=== PATIENT | female | born 1970 | race Two or more races ===

== ENCOUNTER → 2025-06-18 | Outpatient (CLI) | payer BC, SELFPAY ==
--- NOTE | 2025-06-18 14:30 | XR_ITS ---
Examination: Thyroid sonography complete TECHNIQUE: Grayscale sonographic images thyroid lobes Date and time: June 18, 2025 1537 hours INDICATIONS: Partial thyroidectomy left lobe 19 years ago. FINDINGS: Right thyroid 4.9 cm No thyroid nodules Absent left thyroid No soft tissue mass in the left thyroid bed IMPRESSION: No right thyroid nodules No soft tissue mass in the left thyroid bed
== END | disposition home or self-care (01) ==
LOC: CDIM 14:17
PROVIDERS: Referring Provider Internal Medicine Endocrinology, Diabetes & Metabolism; Visit Provider Internal Medicine Endocrinology, Diabetes & Metabolism
DX: E04.9 Nontoxic goiter, unspecified (principal)
CPT/HCPCS: 76536